=== PATIENT | male | born 1980 | race Caucasian/White ===

== ENCOUNTER → 2018-10-31 | Outpatient (CLI) | payer BC ==
--- NOTE | 2018-10-31 14:18 | Diagnostic Imaging Report ---
History: Fell out of a chair. Low back pain, right hip and right leg tenderness. Comparison studies: None Technique: Sagittal, coronal and axial T2 , sagittal T1 and IR, axial spin density oblique. Intravenous contrast: None Findings: Number of lumbar vertebral bodies:5. 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 Alignment: Normal lordosis.No scoliosis. Soft tissues: No T2 hyperintense inflammatory changes. Paraspinal muscles: No signal abnormalities. No atrophy. Lower thoracic cord:Normal in signal and morphology. The tip of the conus is at T12-L1. Cauda equina: No masses. No arachnoiditis. Vertebrae: Normal in height and signal intensity. No compression fractures, infection or neoplasm. Degenerative changes: L1-L2: No abnormalities. L2-L3: No abnormalities. L3-L4: No abnormalities. L4-L5: Disc degeneration with loss of T2 signal and mixed Modic changes. Mild diffuse disc bulge with superimposed central annular fissure and moderate facet hypertrophy results in mild canal stenosis, severe right and mild left foraminal narrowing. Impingement of the exiting right L4 nerve root. Fluid of the bilateral facet joints. L5-S1: Patent canal and foramina. Pseudoarthrosis between L5 left transverse processes and sacral ala. 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 Degenerative severe foraminal narrowing at L4-L5 on the right with impingement of the exiting L4 for nerve root. Disc degeneration with mixed Modic changes at L4-L5. Moderate facet hypertrophy with mild synovitis changes at L4-L5 No other significant (moderate or severe) canal stenosis or foraminal narrowing. Signed by: DR Abdoulaye Garner M.D. on 10/31/2018 2:15 PM
== END ==
LOC: MRI 09:59
PROVIDERS: ATTEND Family Medicine
DX: S39.012A Strain of muscle, fascia and tendon of lower back, initial encounter (principal); M51.26 Other intervertebral disc displacement, lumbar region
CPT/HCPCS: 72148

== ENCOUNTER 2018-11-16 10:58 | Outpatient (RCR) | payer BC | END 2018-11-17 | LOC: PT 10:58 | PROVIDERS: ATTEND Neurological Surgery | DX: M51.16 Intervertebral disc disorders with radiculopathy, lumbar region (principal) ==

== ENCOUNTER 2018-11-28 10:00 | Outpatient (RCR) | payer BC | END 2018-12-17 | LOC: PT 10:00 | PROVIDERS: ATTEND Neurological Surgery | DX: M51.16 Intervertebral disc disorders with radiculopathy, lumbar region (principal); M62.81 Muscle weakness (generalized) ==